=== PATIENT | male | born 1955 | race Caucasian/White ===

== ENCOUNTER → 2022-03-11 07:33 | Outpatient (BNVA) | payer MEDICARE, OTHER, SELFPAY | PROVIDERS: Family Provider Family Medicine; PCP Family Medicine; Visit Provider Urology | DX: R97.20 Elevated prostate specific antigen [PSA] (principal) | CPT/HCPCS: 36415; 81003; 84153; 99203 ==

== ENCOUNTER → 2022-07-10 10:27 | Outpatient (BNVA) | payer MEDICARE, SELFPAY | PROVIDERS: Family Provider Family Medicine; PCP Family Medicine; Visit Provider Urology | DX: R97.20 Elevated prostate specific antigen [PSA] (principal) | CPT/HCPCS: 81003; 99213 ==

== ENCOUNTER 2022-10-13 06:20 | Emergency (ER) | payer MEDICARE, OTHER, SELFPAY ==
[2022-10-13 06:21] VITALS: BP 141/94; PULSE 101; RESP 16; TEMP 37; O2SAT 96
--- NOTE | 2022-10-13 06:30 | ECG_ITS ---
[facility] Test Date: 2022-10-13 Pat Name: Enzo Vyas Department: Room: Gender: Male [employer]: : 1955 Requested By: Alfredito Bean Order Number: [id number] Mily MD: Venkat Farah M.D. Measurements Intervals [place] Rate: 96 P: 69 MN: 171 QRS: 77 QRSD: 90 T: 80 QT: 347 QTc: 440 Interpretive Statements SINUS RHYTHM No previous ECG available for comparison Electronically Signed On 10-13-2022 16:02:00 CDT by Venkat Farah M.D. [id number]
[2022-10-13 06:33] VITALS: O2SAT 95
[2022-10-13 06:35] VITALS: BP 141/94; PULSE 100; RESP 18; O2SAT 95
--- NOTE | 2022-10-13 06:39 | XR_ITS ---
WS: [id number] Portable AP upright chest, 10/13/2022 Clinical Data: dyspnea/cough Comparison: None. Findings: No nodules, masses or effusions are seen. The heart is normal. The pulmonary vascularity is not increased. No pneumonia or pneumothorax is seen. There are calcified granulomas in the paratrach eal region and both javier. XR/XR chest 1V portable [id number] Impression: Old granulomatous disease.
--- NOTE | 2022-10-13 06:39 | W.ED.URI ---
HPI - URI/Sore Throat General: Chief Complaint: Upper Respiratory Infection Stated Complaint: URI Time Seen by Provider: 10/13/22 06:38 Source: patient Mode of arrival: EMS History of Present Illness: 57-year-old male presents to the emergency room complaining of cough or pressure symptoms last 2 weeks worsened today. He feels he may be dehydrated. Cough is nonproductive. His had also recently been sick. No vomiting he has not had any diarrhea. Just generally does not feel well reports low-grade fever at home although he is afebrile here. Patient is non-smoker nondrinker he has no history of coronary artery disease. MD elicited complaint: fever and cough Onset (ago): week(s) (2) Consistency: constant and progressively worsening Severity: mild Exacerbating factors: nothing Relieving factors: nothing Associated symptoms: Reports congestion, cough, fever(s), myalgias, nasal congestion, short of breath and sore throat; Deny abdominal pain, change in voice, chills, chest pain, diarrhea, epistaxis, ear or mastoid pain, headache(s), nausea, rash, rhinorrhea, sinus pain, stiffness or vomiting Review of Systems Const: Reports: fever(s); Denies: chills ENMT: Reports: nasal congestion; Denies: ear or mastoid pain, epistaxis or sinus pain Card: Denies: chest pain Resp: Denies: dyspnea, productive cough or non-productive cough GI: Denies: abdominal pain, nausea, vomiting or diarrhea : Denies: flank pain, dysuria, urinary frequency or urinary urgency Skin/Breast: Denies: rash or pruritus Neuro: Denies: headache(s) PFS ED PFSH: Medical History Elevated PSA Family History Mother , at age 78 Lymphoma Hypertension Father , at age 99 No problems noted. Social History Smoking and tobacco status: never smoked Alcohol intake: never Marital status: Current occupational status: retired Physical Exam Const: GENERAL APPEARANCE: cooperative and comfortable ORIENTATION/CONSCIOUSNESS: Yes awake, Yes oriented to person, Yes oriented to place and Yes oriented to time HENMT: COMMON NORMALS: normocephalic, atraumatic and hearing grossly normal bilaterally HEAD & SCALP: normocephalic and atraumatic Resp: COMMON NORMALS: normal respiratory effort, No retractions, No use of accessory muscles and clear to auscultation bilaterally AUSCULTATION: clear to auscultation bilaterally Cardio: COMMON NORMALS: regular rate, regular rhythm and No murmurs present (Cardio) RATE: regular rate RHYTHM: regular rhythm GI: COMMON NORMALS: Soft to palpation and No hepatosplenomegaly present AUSCULTATION: Yes normoactive bowel sounds PALPATION: Yes Soft to palpation, No Tenderness to palpation present (GI), No Guarding due to palpation present (GI) and Yes No hepatosplenomegaly present Extremity: COMMON NORMALS: normal to inspection, capillary refill normal, no clubbing, cyanosis or edema, no calf tenderness and no pedal edema Neuro: SENSORIUM/ORIENTATION: Yes oriented to person, Yes oriented to place and Yes oriented to time Skin: COMMON NORMALS: no rashes or lesions noted GENERAL SKIN EXAM: no rashes or lesions noted Course Vital Signs: Vital signs: Vital Signs Temperature 98.6 F 10/13/22 06:21 Pulse Rate 92 10/13/22 07:54 Respiratory Rate 16 10/13/22 07:54 Blood Pressure 125/82 10/13/22 07:54 Pulse Oximetry 96 10/13/22 07:54 Oxygen Delivery Me thod 10/13/22 06:35 MDM - URI/Sore Throat Medical Decision Making Labs imaging and EKG reviewed. EKG shows normal sinus rhythm Labs show some mild lymphocytopenia with a very slightly elevated white count otherwise is relatively unremarkable. No significant signs of dehydration. Chest x-ray shows some granulation tissue in the right lung which appears to be old I do not have any old x-rays to compare to no clear pneumonia infiltrates. No pneumothorax no widening of the mediastinum. We will start him on doxycycline 100 mg p.o. twice daily for 7 days albuterol to use as needed for cough steroid taper. COVID swab was done if he does have COVID which is possible given his lymphocyte pi?a he is beyond window of opportunity for antivirals his vital signs are stable and would be treated as an outpatient. Radiology over read chest x-ray read as old granulomatous disease as anticipated. Medical Records I reviewed the patient's medical records. Lab Data I reviewed the patient's lab results. 10/13/22 06:25 10/13/22 06:25 Radiology Impressions Chest X-Ray 10/13/22 06:39 Impression: Old granulomatous disease. Laboratory Results WBC 11.6 10^3/uL (4.0-10.0) H 10/13/22 06:25 RBC 4.25 10^6/uL (4.1-5.3) 10/13/22 06:25 Hgb 13.3 g/dL (11.7-16.6) 10/13/22 06:25 Hct 41.1 % (42.0-52.0) L 10/13/22 06:25 MCV 96.7 fl (80-94) H 10/13/22 06:25 MCH 31.3 pg (28.0-34.0) 10/13/22 06:25 MCHC 32.4 g/dL (30.0-36.0) 10/13/22 06:25 RDW 14.6 % (12.1-15.1) 10/13/22 06:25 Plt Count 203 10^3/cmm (130-400) 10/13/22 06:25 MPV 9.0 fL (7.4-10.4) 10/13/22 06:25 Neut % (Auto) 83.4 % 10/13/22 06:25 Lymph % (Auto) 4.1 % 10/13/22 06:25 Starke % (Auto) 11.6 % 10/13/22 06:25 Eos % (Auto) 0.0 % 10/13/22 06:25 Baso % (Auto) 0.4 % 10/13/22 06:25 Neut # (Auto) 9.65 10^3/uL (1.8-7.7) H 10/13/22 06:25 Lymph # (Auto) 0.5 10^3/uL (0.8-4.8) L 10/13/22 06:25 Starke # (Auto) 1.3 10^3/uL (0.2-0.9) H 10/13/22 06:25 Eos # (Auto) 0.0 10^3/uL (0.0-0.8) 10/13/22 06:25 Baso # (Auto) 0.1 10^3/uL (0.0-0.1) 10/13/22 06:25 Nucleated RBC % (auto) 0 % 10/13/22 06:25 Nucleated RBCs # 0.0 /100WBC 10/13/22 06:25 Sodium 137 mmol/L (136-145) 10/13/22 06:25 Potassium 4.0 mmol/L (3.5-5.1) 10/13/22 06:25 Chloride 102 mmol/L (98-107) 10/13/22 06:25 Carbon Dioxide 24 mmol/L (22-29) 10/13/22 06:25 Anion Gap 15.0 (5-19) 10/13/22 06:25 BUN 11 mg/dL (8-23) 10/13/22 06:25 Creatinine 0.9 mg/dL (0.7-1.2) 10/13/22 06:25 GFR Calculation 83.7 mL/min (90-130) L 10/13/22 06:25 Glucose 109 mg/dL (65-115) 10/13/22 06:25 Calculated Osmolality 284 mOsm/kg (285-295) L 10/13/22 06:25 Calcium 8.9 mg/dL (8.5-10.5) 10/13/22 06:25 Total Bilirubin 0.4 mg/dL (0.15-1.2) 10/13/22 06:25 AST 22 U/L (0-40) 10/13/22 06:25 ALT 24 U/L (0-41) 10/13/22 06:25 Alkaline Phosphatase 78 U/L (40-130) 10/13/22 06:25 Total Protein 6.8 g/dL (6.6-8.7) 10/13/22 06:25 Albumin 3.9 g/dL (3.5-5.2) 10/13/22 06:25 Globulin 2.9 g/dL (1.3-4.6) 10/13/22 06:25 Discharge Plan Discharge Patient Disposition: Home Clinical Impression: Bronchitis Condition: Stable Prescriptions: New doxycycline hyclate 100 mg capsule 100 mg PO BID 10 Days Qty: 20 0RF Medrol (Mikael) 4 mg tablets,dose pack See Rx Instructions .ROUTE .COMPLEX Qty: 21 0RF Rx Instructions: orally per package directions albuterol sulfate 90 mcg/actuation HFA aerosol inhaler 2 inh INHALATION Q4H PRN (Reason: shortness of breath or wheezing) Qty: 18 0RF No Action simvastatin 10 mg tablet 10 mg PO DAILY multivitamin Tablet 1 tab PO DAILY glucosamine HCl 750 mg tablet 750 mg PO DAILY Rx Instructions: administer with a meal ibuprofen 200 mg capsule 200 mg PO Q6H PRN naproxen 250 mg tablet 250 mg PO BID PRN Discharge Orders: Discharge ED (Routine); Ordered 10/13/22 Ordered By: Alfredito Lomas Referrals: Hannah Vasquez MD [Primary Care Provider] - Discharge Diet: Usual diet Discharge Activity: Increase activity as tolerated Patient Instructions: Opioid Safety, Pain Management Activity Restrictions/Additional Instructions: You are seen today for upper respiratory infection with cough and shortness of breath. Your chest x-ray did not show any pneumonia. Your lab work was only significant for a slightly lowered lymphocyte count which can be seen at times with COVID. Given the length of time you have had symptoms you were given prescription for doxycycline and a prednisone taper as well as albuterol to use as needed. Coding Level of Care Code ED Residential Direct Support Professional for Hermelindo Cross
[2022-10-13] MEDS: sodium chloride 0.9% 1,000 ML 999 ML IV (06:44)
[2022-10-13 06:45] LABS: Basophils # 0.1 10^3/uL (0.0-0.1); Basophils % 0.4 %; Hematocrit 41.1 % (42.0-52.0); Hemoglobin 13.3 g/dL (11.7-16.6); Lymphocytes # 0.5 10^3/uL (0.8-4.8); Lymphocytes % 4.1 %; Mean Corpuscular HGB Conc 32.4 g/dL (30.0-36.0); Mean Corpuscular Hemoglobin 31.3 pg (28.0-34.0); Mean Corpuscular Volume 96.7 fl (80-94); Monocytes # 1.3 10^3/uL (0.2-0.9); Monocytes % 11.6 %; Neutrophils # 9.65 10^3/uL (1.8-7.7); Neutrophils % 83.4 %; Nucleated Red Blood Cells % 0 %; Platelet Count 203 10^3/cmm (130-400); Red Blood Count 4.25 10^6/uL (4.1-5.3); Red Cell Distribution Width 14.6 % (12.1-15.1); White Blood Count 11.6 10^3/uL (4.0-10.0)
[2022-10-13 07:04] LABS: Alanine Aminotransferase 24 U/L (0-41); Albumin Level 3.9 g/dL (3.5-5.2); Alkaline Phosphatase 78 U/L (40-130); Aspartate Amino Transferase 22 U/L (0-40); Blood Urea Nitrogen 11 mg/dL (8-23); Calcium 8.9 mg/dL (8.5-10.5); Carbon Dioxide 24 mmol/L (22-29); Chloride 102 mmol/L (98-107); Globulin 2.9 g/dL (1.3-4.6); Glomerular Filtration Rate 83.7 mL/min (90-130); Glucose 109 mg/dL (65-115); Osmolality Calculated 284 mOsm/kg (285-295); Sodium 137 mmol/L (136-145); Total Bilirubin 0.4 mg/dL (0.15-1.2); Total Protein 6.8 g/dL (6.6-8.7)
[2022-10-13 07:54] VITALS: BP 125/82; PULSE 92; RESP 16; O2SAT 96
[2022-10-13 10:22] LABS: Adenovirus Not Detected (NOT DETECT); Chlamydia Pneumoniae Not Detected (NOT DETECT); Coronavirus 229E,HKU1,NL63,OC4 Not Detected (NOT DETECT); Human Metapneumovirus Not Detected (NOT DETECT); Human Rhinovirus/Enterovirus Not Detected (NOT DETECT); Influenza A Not Detected (NOT DETECT); Influenza A H1 Not Detected (NOT DETECT); Influenza A H1-2009 Not Detected (NOT DETECT); Influenza A H3 Not Detected (NOT DETECT); Influenza B Not Detected (NOT DETECT); Mycoplasma Pneumoniae Not Detected (NOT DETECT); Parainfluenza Virus Type 1 Not Detected (NOT DETECT); Parainfluenza Virus Type 2 Not Detected (NOT DETECT); Parainfluenza Virus Type 3 Not Detected (NOT DETECT); Parainfluenza Virus Type 4 Not Detected (NOT DETECT); Respiratory Syncytial Virus A Not Detected (NOT DETECT); Respiratory Syncytial Virus B Not Detected (NOT DETECT); SARS-COV-2 Detected (NOT DETECT)
== END 2022-10-13 07:56 | disposition home or self-care (01) ==
PROVIDERS: Emergency Provider Family Medicine; PCP Family Medicine
DX: J40 Bronchitis, not specified as acute or chronic (principal); Z20.822 Contact with and (suspected) exposure to COVID-19
CPT/HCPCS: 71045; 80053; 85025; 87635; 93005; 96360; 99285; J7030

== ENCOUNTER → 2023-01-05 07:17 | Outpatient (BNVA) | payer MEDICARE, OTHER, SELFPAY | PROVIDERS: PCP Family Medicine; Visit Provider Urology | DX: R97.20 Elevated prostate specific antigen [PSA] (principal) | CPT/HCPCS: 81003; 99213 ==

== ENCOUNTER → 2023-12-10 07:50 | Outpatient (BNVA) | payer MEDICARE, OTHER, SELFPAY | PROVIDERS: PCP Family Medicine; Visit Provider Podiatrist Foot & Ankle Surgery | DX: M79.671 Pain in right foot; M72.2 Plantar fascial fibromatosis; M21.6X1 Other acquired deformities of right foot; M21.6X2 Other acquired deformities of left foot | CPT/HCPCS: 73630; 99203 ==

== ENCOUNTER → 2024-01-06 07:13 | Outpatient (BNVA) | payer MEDICARE, OTHER, SELFPAY | PROVIDERS: PCP Family Medicine; Visit Provider Podiatrist Foot & Ankle Surgery | DX: M72.2 Plantar fascial fibromatosis | CPT/HCPCS: 99213 ==

== ENCOUNTER → 2024-02-10 06:52 | Outpatient (BNVA) | payer MEDICARE, OTHER, SELFPAY | PROVIDERS: PCP Family Medicine; Visit Provider Podiatrist Foot & Ankle Surgery | DX: M72.2 Plantar fascial fibromatosis (principal); M21.6X1 Other acquired deformities of right foot; M21.6X2 Other acquired deformities of left foot | CPT/HCPCS: 20550; J1100; J3301; J3490 ==

== ENCOUNTER → 2024-03-16 07:49 | Outpatient (BNVA) | payer MEDICARE, OTHER, SELFPAY | PROVIDERS: PCP Family Medicine; Visit Provider Podiatrist Foot & Ankle Surgery | DX: M72.2 Plantar fascial fibromatosis (principal); M21.6X1 Other acquired deformities of right foot | CPT/HCPCS: 20550; J1100; J3301 ==

== ENCOUNTER → 2025-03-17 10:22 | Outpatient (BNVA) | payer MEDICARE, OTHER, SELFPAY | PROVIDERS: PCP Family Medicine; Visit Provider Emergency Medicine | DX: R05.9 Cough, unspecified (principal) | CPT/HCPCS: 87400; 87426 ==